=== PATIENT | female | born 2000 | race Two or more races ===

== ENCOUNTER 2025-05-30 05:58 | Day surgery (SDC) | payer OTHER ==
[2025-05-25 13:01] VITALS: BP 115/75
[~2025-05-30] VITALS: Ht 167.6 cm; Wt 74.8 kg
[2025-05-30] MEDS ORDERED: CEFAZOLIN SODIUM 1,000 MG VIAL ONE (07:47)
[2025-05-30] MEDS ORDERED: DEXAMETHASONE SODIUM PHOSPHATE 4 MG/ML VIAL ONE (09:18)
[2025-05-30] MEDS ORDERED: FAMOTIDINE/PF 20 MG/2 ML VIAL ONE (09:23)
[2025-05-30] MEDS ORDERED: SUGAMMADEX SODIUM 200 MG/2 ML VIAL IV ONE (10:25)
[2025-05-30] MEDS ORDERED: OXYMETAZOLINE HCL 15 ML NASAL DROPS NASAL ONE (10:30)
[2025-05-30] MEDS ORDERED: MORPHINE SULFATE 4 MG/ML VIAL IV ONE (11:45)
== END 2025-05-30 15:25 | disposition home or self-care (01) ==
LOC: CIR.AMB 05:58
PROVIDERS: ATTEND Otolaryngology
DX: J35.1 Hypertrophy of tonsils (principal); D37.05 Neoplasm of uncertain behavior of pharynx; D37.02 Neoplasm of uncertain behavior of tongue